=== PATIENT | male | born 1975 | race Caucasian/White ===

== ENCOUNTER 2024-08-01 06:51 | Day surgery (SDC) | payer OTHER ==
[2024-08-01] MEDS ORDERED: fentaNYL CITRATE 50 MCG/ML AMPUL IV PUSH ONE (10:30)
[2024-08-01] MEDS ORDERED: MIDAZOLAM HCL 2 MG/2 ML VIAL IV ONE (10:30)
[2024-08-01] MEDS ORDERED: DIPHENHYDRAMINE HCL 50 MG/ML VIAL 1ML IV ONE (10:30)
== END 2024-08-01 11:38 | disposition home or self-care (01) ==
LOC: AMB-ENDOS 06:51
PROVIDERS: ATTEND Colon & Rectal Surgery
DX: D12.2 Benign neoplasm of ascending colon (principal); K63.5 Polyp of colon